=== PATIENT | male | born 1990 | race Caucasian/White ===

== ENCOUNTER 2019-02-26 16:08 | Emergency (ER) | payer MEDICAID, OTHER ==
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
[2019-02-26 16:35] VITALS: BP 166/97
== END 2019-02-26 17:09 | disposition home or self-care (01) ==
LOC: EDUNIT#
DX: S50.11XA Contusion of right forearm, initial encounter (principal); S50.811A Abrasion of right forearm, initial encounter; V03.00XA Pedestrian on foot injured in collision with car, pick-up truck or van in nontraffic accident, initial encounter